=== PATIENT | male | born 1995 | race Caucasian/White ===

== ENCOUNTER 2023-03-02 09:50 | Emergency (ER) | payer BC ==
[~2023-03-02] VITALS: Ht 190.5 cm; Wt 127.0 kg
--- NOTE | 2023-03-02 09:52 | NUR ---
Patient to ER bed 06 to gown for evaluation. Side rails up. Report given to Jaren RN .
--- NOTE | 2023-03-02 09:53 | NUR ---
PT BIB WALKING FROM HOME WITH C/O RECTAL BLEEDING SINCE THIS MORNING. PT STATES HE HAS LOWER ABN PAIN SINCE THIS MORNING. PT STATES HE IS CURRENTLY CONSTIPATED. HX - N/A. PT IS AAX04, VSS, NAD, PT IS BREATHING EVEN AND UNLABORED. PT ON DIRECTOR OF PLANNING SHPOWING NSR. PT AMBULATORY WITH STEADY GAIT. HOB ELEVATED, SIDE RAILS UP, BED IN LOWEST POSITION, CALL LIGHT WITHIN REACH. SAFETY PRECAUTION AND COMFORT MEASURES IN PLACE. PENDING MD FISHER AND ORDERS.
[2023-03-02 09:55] VITALS: BP_SYST 130
--- NOTE | 2023-03-02 10:01 | NUR ---
DR. LIZ AT BEDSIDE EXAMINING THE PT.
[2023-03-02] MEDS ORDERED: KETOROLAC TROMETHAMINE 60 MG/2 ML VIAL IM ONE (10:15)
[2023-03-02] MEDS ORDERED: MORPHINE 4 MG INJ. 4 MG/ML VIAL IVP ONE (10:45)
[2023-03-02] MEDS ORDERED: NACL 0.9% 1,000 ML IV ONE (10:45)
[2023-03-02] MEDS ORDERED: SODIUM PHOSPHATE,MONO-DIBASIC 133 ML ENEMA RC ONE (10:45)
[2023-03-02] MEDS ORDERED: POLY17PO4 PO (12:43)
[2023-03-02 13:09] VITALS: BP_SYST 130
--- NOTE | 2023-03-02 13:11 | NUR ---
Patient given written and verbal discharge instructions and verbalizes understanding. ER MD discussed with patient the results and treatment provided. Patient in stable condition. ID arm band removed. IV catheter removed intact and dressing applied, no active bleeding. Rx of MIRALAX given. Patient educated on pain management and to follow up with PMD. Opportunity for questions provided and answered. Medication side effect fact sheet provided.
--- NOTE | 2023-03-02 13:44 | NUR ---
PT MEDICALLY CLEARED FOR DISCHARGE. D/C INSTRUCTIONS GIVEN TO PT. PT TO FOLLOW-UP WITH PCP WITHIN 1-3 DAYS AND TO RETURN TO ED FOR WORSENING S/S. PT VERBALZIED UNDERSTANDING. PT AAX04, NAD, WRISTBAND REMOVED. PT AMBULATORY WITH STEADY GAIT. PT LEFT ED WITH ALL BELONGINGS.
== END 2023-03-02 13:44 | disposition home or self-care (01) ==
LOC: SED 09:50
DX: K59.00 Constipation, unspecified (principal); R10.30 Lower abdominal pain, unspecified; Z88.0 Allergy status to penicillin; Z79.899 Other long term (current) drug therapy
CPT/HCPCS: 99284; 96374; 96361; 74018; 96372; J1885; J2270; J7030